=== PATIENT | female | born 1960 | race Caucasian/White ===

== ENCOUNTER → 2017-05-18 | Outpatient (CLI) | payer OTHER | LOC: RAD 08:29 | DX: Z12.31 Encounter for screening mammogram for malignant neoplasm of breast (principal) ==

== ENCOUNTER → 2017-10-25 | Outpatient (CLI) | payer OTHER | LOC: RAD 11:04 | DX: R06.00 Dyspnea, unspecified (principal) ==

== ENCOUNTER → 2020-02-04 | Outpatient (CLI) | payer OTHER | LOC: RAD 14:21 | PROVIDERS: ATTEND Family Medicine | DX: M48.04 Spinal stenosis, thoracic region (principal); M50.322 Other cervical disc degeneration at C5-C6 level ==

== ENCOUNTER → 2021-04-02 | Outpatient (CLI) | payer OTHER | LOC: SJCVCIMAG 07:33 | PROVIDERS: ATTEND Internal Medicine | DX: R06.09 Other forms of dyspnea (principal); I10 Essential (primary) hypertension; E11.9 Type 2 diabetes mellitus without complications; R07.89 Other chest pain; E78.5 Hyperlipidemia, unspecified; E66.9 Obesity, unspecified; Z87.891 Personal history of nicotine dependence ==